=== PATIENT | female | born 1990 | race Caucasian/White ===

== ENCOUNTER 2021-02-28 09:18 | Emergency (ER) | payer BC, MEDICAID ==
[~2021-02-28] VITALS: Ht 167.6 cm; Wt 163.6 kg
[~2021-02-28 09:18] MED LIST: ALBU8.5H4 IH; FURO40TA4 PO; LISI40TA13 PO; METF500T PO
[2021-02-28 09:36] VITALS: BP 138/85
== END 2021-02-28 11:10 | disposition home or self-care (01) ==
LOC: ER 09:19
DX: M72.2 Plantar fascial fibromatosis (principal); M79.671 Pain in right foot; I10 Essential (primary) hypertension; J45.909 Unspecified asthma, uncomplicated; E11.9 Type 2 diabetes mellitus without complications; Z88.5 Allergy status to narcotic agent; Z88.8 Allergy status to other drugs, medicaments and biological substances; Z79.899 Other long term (current) drug therapy
CPT/HCPCS: 73630; 99283

== ENCOUNTER 2023-03-14 12:21 | Emergency (ER) | payer BC, MEDICAID ==
[~2023-03-14] VITALS: Ht 167.6 cm; Wt 150.0 kg
[2023-03-14 12:40] VITALS: BP 141/79
[2023-03-14] MEDS ORDERED: AMOX-117 PO (13:01)
[2023-03-14] MEDS ORDERED: amox tr/potassium clavulanate 875/125mg TAB PO ONE (13:05)
== END 2023-03-14 13:23 | disposition home or self-care (01) ==
LOC: ER 12:21
DX: R59.9 Enlarged lymph nodes, unspecified (principal); I10 Essential (primary) hypertension; J45.909 Unspecified asthma, uncomplicated; E11.9 Type 2 diabetes mellitus without complications; Z88.5 Allergy status to narcotic agent; Z88.8 Allergy status to other drugs, medicaments and biological substances; Z79.899 Other long term (current) drug therapy
CPT/HCPCS: 99283

== ENCOUNTER 2023-08-29 17:27 | Emergency (ER) | payer BC, MEDICAID ==
[~2023-08-29] VITALS: Ht 167.6 cm; Wt 159.3 kg
[2023-08-29 17:40] VITALS: TEMP 97.8
[2023-08-29 18:28] LABS: ALANINE AMINOTRANSFERASE 22 U/L (12-78); ALBUMIN 3.8 G/DL (3.4-5.0); ALBUMIN/GLOBULIN RATIO 0.8 (1.1-1.5); ALKALINE PHOSPHATASE 106 IU/L (46-116); ANION GAP 9 (8-16); ASPARTATE AMINO TRANSFERASE 13 U/L (10-37); BILIRUBIN,TOTAL 0.4 MG/DL (0.1-1.0); BLOOD UREA NITROGEN 12 MG/DL (7-18); BUN/CREATININE RATIO 14.6 (10.0-20.0); CALCIUM 9.3 MG/DL (8.5-10.1); CHLORIDE 99 MMOL/L (99-107); CREATININE 0.82 MG/DL (0.40-0.90); GLUCOSE 97 MG/DL (70-104); POTASSIUM 3.7 MMOL/L (3.5-5.1); SODIUM 135 MMOL/L (135-145); TOTAL CARBON DIOXIDE 26.6 MMOL/L (24-32); TOTAL PROTEIN 8.3 G/DL (6.4-8.2); eCRCL 91 ML/MIN; eGFR 80 ML/MIN
[2023-08-29 18:34] LABS: D-DIMER 0.49 MG/L FEU (0-0.50)
[2023-08-29 18:36] LABS: BASOPHILS % (AUTO) 0.4 % (0-1); EOSINOPHILS # (AUTO) 0.2 X10'3 (0-0.9); EOSINOPHILS % (AUTO) 2.2 % (0-6); HEMATOCRIT 32.2 % (35.0-45.0); HEMOGLOBIN 10.1 g/dl (12.0-16.0); LYMPHOCYTES # (AUTO) 3.7 X10'3 (1.1-4.8); LYMPHOCYTES % (AUTO) 33.4 % (21-51); MEAN CORPUSCULAR HEMOGLOBIN 20.8 PG (27.0-31.0); MEAN CORPUSCULAR HGB CONC 31.4 g/dL (33.0-36.5); MEAN CORPUSCULAR VOLUME 66.4 FL (78-98); MEAN PLATELET VOLUME 9.2 FL (7.4-10.4); MONOCYTES # (AUTO) 0.5 X10'3 (0-0.9); MONOCYTES % (AUTO) 4.1 % (2-12); NEUTROPHILS # (AUTO) 6.7 X10'3 (1.8-7.7); NEUTROPHILS % (AUTO) 59.9 % (42-75); PLATELET COUNT 266 X10'3 (140-440); PRO BRAIN NATRIURETIC PEPTIDE < 30 PG/ML (0-125); RED BLOOD COUNT 4.86 X10'6 (4.20-5.60); RED CELL DISTRIBUTION WIDTH 19.1 % (11.5-14.5); WHITE BLOOD COUNT 11.2 X10'3 (4.5-11.0)
[2023-08-29 19:34] VITALS: BP 126/82; PULSE 92; RESP 16; O2SAT 99
[2023-08-29 19:35] LABS: ANISOCYTOSIS 2+; MICROCYTOSIS 2+; PLATELET ESTIMATE NORMAL
[2023-08-29 19:36] LABS: TEAR DROP CELLS FEW
[2023-08-29 19:37] LABS: ELLIPTOCYTES FEW; SCHISTOCYTES FEW
== END 2023-08-29 19:36 | disposition home or self-care (01) ==
LOC: ER 17:28
DX: R06.02 Shortness of breath (principal); R07.89 Other chest pain; M54.6 Pain in thoracic spine; M62.830 Muscle spasm of back; Z88.8 Allergy status to other drugs, medicaments and biological substances; Z88.5 Allergy status to narcotic agent; Z79.899 Other long term (current) drug therapy
CPT/HCPCS: 36415; 71045; 80053; 83880; 84484; 85008; 85025; 85379; 93005; 99285